=== PATIENT | male | born 1945 | race Caucasian/White ===

== ENCOUNTER 2020-08-14 14:35 | Observation (INO) | payer OTHER ==
[2020-08-14 16:19] LABS: Absolute Lymphocytes (CBC) 1.6 K/uL (0.7-4.9); Basophils % 0.4 % (0-1.3); Hematocrit 48.7 % (39.6-49.0); Lymphocytes % 8.1 % (15.3-44.8); MPV 8.2 fL (7.6-11.3); RBC Red Blood Cell Count 5.45 M/uL (4.33-5.43)
[2020-08-14] MEDS ORDERED: ONDANSETRON 4 MG/2 ML VIAL ONE (16:21)
[2020-08-14] MEDS ORDERED: NA CHLORIDE 0.9% 1,000 ML ONE (16:21)
[2020-08-14] MEDS ORDERED: MORPHINE 4 MG/ML SYR ONE (16:21)
[2020-08-14 16:31] LABS: Albumin 4.1 g/dL (3.4-5.0); Bilirubin Direct 0.2 mg/dL (0-0.2); Bilirubin Total 0.8 mg/dL (0.2-1.0); Potassium 3.7 mmol/L (3.5-5.1); Protein, Total 7.5 g/dL (6.4-8.2)
[2020-08-14 17:36] LABS: Blood Morphology Comment NOT SEEN (NOT SEEN); Platelet Estimate ADEQ
--- NOTE | 2020-08-14 17:43 | RAD REPORT ---
EXAM DESCRIPTION: CT - Abdomen Pelvis W Contrast - 08/14/2020 5:12 pm CLINICAL HISTORY: Abdominal distention;Abd pain COMPARISON: No comparisons TECHNIQUE: Biphasic, helical CT imaging of the abdomen and pelvis was performed following 100 ml non -ionic IV contrast. No oral contrast administered. All CT scans are performed using dose optimization technique as appropriate and may include automated exposure control or mA/KV adjustment according to patient size. FINDINGS: No suspicious findings in the lung bases. The liver, spleen, and pancreas show no suspicious findings. Liver shows a borderline to mild diffuse fatty infiltration pattern. No portal vein abnormality. No gallbladder or biliary tree abnormality. Symmetric renal function is seen with no hydronephrosis or suspicious renal mass. No pyelonephritis o r acute parenchymal process. No bladder abnormalities. No adrenal abnormalities. Enlarged prostate gl and projects into the bladder base. No gastric dilatation or gastric wall thickening. A few mildly prominent fluid-filled small bowel loo ps are present. This is nonspecific but could indicate enteritis. Patient has a right inguinal hernia that contains a loop of ileum. There is no dilatation proximal to the herniation and the herniated b owel loop show no thickening or edema. Appendix is not clearly identifiable. No direct or indirect ev idence for appendicitis. Moderate stool volume distends the sigmoid and dilates the rectum. No free air, free fluid or inflammatory stranding. No hernia, mass or bulky lymphadenopathy. Disc and bone degenerative changes present. No compression fracture or pathologic bone process. L5 pa rs interarticularis defects are present. Large 8 centimeter lipoma is seen in the lateral lower left chest. This is incompletely imaged. IMPRESSION: A few mildly prominent fluid-filled small bowel loops are present and could reflect a no nspecific enteritis. Moderate large stool volume distends the sigmoid colon and dilates the rectum. Right inguinal hernia containing a loop of ileum. No obstruction proximal to the herniated bowel loop no edema of the bowel wall or fat within the hernia.
[2020-08-14] MEDS ORDERED: HYDROMORPHONE HCL 1 MG/ML INJ ONE (18:27)
--- NOTE | 2020-08-14 18:31 | EDPHYS ---
Physician Documentation [facility] Name: Wellington De León Age: 75 yrs Sex: Male : 1945 Arrival Date: 08/14/2020 Time: 14:38 Bed 16 Private MD: ED Physician Simone Moore HPI: 08/14 15:50 This 75 yrs old Male presents to ER via Wheelchair with complaints of cp Abdominal Pain. 15:50 The patient presents with abdominal pain in the lower abdomen. Onset: The cp symptoms/episode began/occurred this morning. The symptoms do not radiate. Associated signs and symptoms: Pertinent positives: constipation, nausea, Pertinent negatives: blood in stools, diarrhea, dysuria, fever, testicular pain. The symptoms are described as constant. 15:50 Patient reports history of hernia and chronic constipation. Reports abdominal pain cp started this morning at work and that he has noticed leakage of stool from rectum. Historical: - Allergies: 15:17 No Known Allergies; ca1 - Home Meds: 15:17 None [Active]; ca1 - PMHx: 15:17 Hernia; ca1 - PSHx: 15:17 None; ca1 - Immunization history:: Client reports receiving the 1st dose of the Covid vaccine. - Social history:: Smoking status: Patient denies any tobacco usage or history of. ROS: 15:55 Constitutional: Negative for body aches, chills, fever, poor PO intake. cp 15:55 Eyes: Negative for injury, pain, redness, and discharge. cp 15:55 Cardiovascular: Negative for chest pain. 15:55 Respiratory: Negative for cough, shortness of breath. 15:55 Abdomen/GI: Positive for abdominal pain, nausea, constipation, abdominal distension, Negative for vomiting, black/tarry stool, rectal bleeding. 15:55 Back: Negative for pain at rest, pain with movement. 15:55 Neuro: Negative for altered mental status, headache, weakness. 15:55 All other systems are negative. Exam: 16:00 Constitutional: The patient appears in no acute distress, alert, awake, cp non-diaphoretic, non-toxic, well developed, well nourished. 16:00 Head/Face: Normocephalic, atraumatic. cp 16:00 Eyes: Periorbital structures: appear normal, Conjunctiva: normal, no exudate, no injection, Sclera: no appreciated abnormality, Lids and lashes: appear normal, bilaterally. 16:00 ENT: External ear(s): are unremarkable, Nose: is normal, Mouth: Lips: moist, Oral mucosa: pink and intact, moist, Posterior pharynx: Airway: no evidence of obstruction, patent. 16:00 Chest/axilla: Inspection: normal, Palpation: is normal, no crepitus, no tenderness. 16:00 Cardiovascular: Rate: normal, Rhythm: regular, Edema: is not appreciated. 16:00 Respiratory: the patient does not display signs of respiratory distress, Respirations: normal, no use of accessory muscles, no retractions, labored breathing, is not present, Breath sounds: are clear throughout, no decreased breath sounds, no wheezing. 16:00 Abdomen/GI: Inspection: distension, that is mild, Bowel sounds: active, all quadrants, Palpation: soft, in all quadrants, moderate abdominal tenderness, in the right lower quadrant and left lower quadrant, rebound tenderness, is not appreciated, voluntary guarding, is elicited in the right lower quadrant and left lower quadrant. 16:00 Back: pain, is absent, ROM is normal. Vital Signs: 15:11 BP 145 / 85; Pulse 96; Resp 16 S; Temp 97.1(TE); Pulse Ox 100% on R/A; Weight 77.11 kg ca1 (R); Height 5 ft. 9 in. (175.26 cm) (R); Pain 9/10; 17:30 BP 149 / 80; Pulse 80; Resp 16; Pulse Ox 100% on R/A; bw 18:42 BP 134 / 82; Pulse 78; Resp 16; Pulse Ox 98% on R/A; iw 20:00 BP 102 / 64; Pulse 78; Resp 16; Pulse Ox 96% ; sf 21:00 BP 106 / 65; Pulse 73; Resp 16; Pulse Ox 95% ; sf 22:00 BP 116 / 71; Pulse 75; Resp 16; Pulse Ox 96% ; sf 15:11 Body Mass Index 25.10 (77.11 kg, 175.26 cm) ca1 MDM: 15:33 Patient medically screened. cp 16:00 Differential diagnosis: bowel obstruction, diverticulitis, pancreatitis, urinary tract cp infection. 18:21 Physician consultation: Hill Medina MD was called at 18:22, was contacted at 18:22, cp regarding consult, patient's condition, will see patient tomorrow for evaluation. Wants IV antibiotics administered. 18:24 Data reviewed: vital signs, nurses notes, lab test result(s), radiologic studies, CT cp scan, I have discussed the patient's presentation/case with the attending Emergency Department Physician;. 08/14 15:39 Order name: Basic Metabolic Panel; Complete Time: 16:33 cp 08/14 16:33 Interpretation: Normal except: CL 108; GLUC 108; GFR 75. 08/14 15:39 Order name: CBC with Diff; Complete Time: 17:38 cp 08/14 17:56 Interpretation: Normal except: WBC 20.20; RBC 5.45; ART% 85.7; LYM% 8.1; NEUT A 17.3. 08/14 15:39 Order name: Hepatic Function; Complete Time: 16:33 cp 08/14 17:39 Interpretation: Reviewed. 08/14 15:39 Order name: Lipase; Complete Time: 16:33 08/14 17:36 Order name: Manual Differential; Complete Time: 17:38 EDAK 08/14 15:39 Order name: CT Abd/Pelvis - IV Contrast Only; Complete Time: 17:52 cp 08/14 19:40 Order name: Abdomen W Erect [facility] 08/14 19:40 Order name: Abdomen W Erect [facility] 08/14 20:31 Order name: SARS-COV-2 RT PCR EDAK 08/14 15:39 Order name: IV Saline Lock; Complete Time: 16:03 cp 08/14 15:39 Order name: Labs collected and sent; Complete Time: 16:04 cp Administered Medications: 16:17 Drug: morphine 4 mg Route: IVP; Site: right antecubital; iw 17:00 Follow up: Response: No adverse reaction; Pain is decreased; RASS: Alert and Calm (0) ca1 16:20 Drug: Zofran (Ondansetron) 4 mg Route: IVP; Site: left antecubital; iw 18:15 Follow up: Response: No adverse reaction; Nausea is decreased ca1 16:21 Drug: NS 0.9% 500 ml Route: IV; Rate: bolus; Site: left antecubital; iw 17:00 Follow up: Response: No adverse reaction; IV Status: Completed infusion; IV Intake: ca1 500ml 18:10 Drug: Dilaudid (HYDROmorphone) 1 mg Route: IVP; Site: left antecubital; ca1 19:42 Follow up: Response: No adverse reaction sf 18:42 Drug: metroNIDAZOLE 500 mg Volume: 100 ml; Route: IVPB; Infused Over: 30 mins; Site: iw left antecubital; 19:42 Follow up: Response: No adverse reaction; IV Status: Completed infusion; IV Intake: sf 100ml 20:00 Drug: Cipro (ciprofloxacin) 400 mg Volume: 200 ml; Route: IVPB; Infused Over: 60 mins; sf Site: left antecubital; 21:00 Follow up: IV Status: Completed infusion; IV Intake: 200ml sf 21:00 Follow up: Response: No adverse reaction sf Disposition: 08/14/20 18:31 Hospitalization ordered by Clayton Horton for Observation. Preliminary diagnosis is Unilateral inguinal hernia, without obstruction or gangrene - right. - Bed requested for Telemetry/MedSurg (observation). - Status is Observation. sf - Condition is Stable. - Problem is new. - Symptoms have improved. Addendum: 08/19/2020 10:10 Co-signature as Attending Physician, Simone Moore MD I agree with the assessment and t w4 plan of care. Signatures: Dispatcher [employer] EDAK Nahed Cast RN RN Rubén Cordova PA PA cp Garcia, Cindy, RN RN Simone Moore MD MD tw4 Mindy Paulson RN RN [facility] Nahun Morales RN RN sf Corrections: (The following items were deleted from the chart) 08/14 17:56 16:33 Normal except: WBC 20.20; RBC 5.45; ART% 85.7; LYM% 8.1. cp cp 19:43 18:30 CORONAVIRUS+MR.LAB.BRZ ordered. EDAK EDMS 21:29 18:31 Hospitalization Ordered by Clayton Horton MD for Observation. Preliminary cg diagnosis is Unilateral inguinal hernia, without obstruction or gangrene - right. Bed requested for Telemetry/MedSurg (observation). Status is Observation. Condition is Stable. Problem is new. Symptoms have improved. cp 22:26 21:29 08/14/2020 18:31 Hospitalization Ordered by Clayton Horton MD for Observation. sf Preliminary diagnosis is Unilateral inguinal hernia, without obstruction or gangrene - right. Bed requested for Telemetry/MedSurg (observation). Status is Observation. Condition is Stable. Problem is new. Symptoms have improved. cg
--- NOTE | 2020-08-14 18:31 | ER ---
Nurse's Notes [facility] Name: Wellington De León Age: 75 yrs Sex: Male : 1945 Arrival Date: 08/14/2020 Time: 14:38 Bed 16 Private MD: Diagnosis: Unilateral inguinal hernia, without obstruction or gangrene-right Presentation: 08/14 15:11 Chief complaint: Patient states: I got a hernia, and at around 0800 I started having ca1 abdominal pain. I thought I just needed to go to the restroom, but I can't. But I also got leaking, through the rectum like a diarrhea. I have had constipation for years. Reports nausea, no vomiting. Coronavirus screen: Client denies travel out of the [place] in the last 14 days. nausea, Client presents with at least one sign or symptom that may indicate coronavirus-19. Standard/surgical mask placed on the client. Provider contacted for isolation considerations. Ebola Screen: Patient negative for fever greater than or equal to 101.5 degrees Fahrenheit, and additional compatible Ebola Virus Disease symptoms Patient denies exposure to infectious person. Patient denies travel to an Ebola-affected area in the 21 days before illness onset. No symptoms or risks identified at this time. Initial Sepsis Screen: Does the patient meet any 2 criteria? No. Patient's initial sepsis screen is negative. Does the patient have a suspected source of infection? No. Patient's initial sepsis screen is negative. Risk Assessment: Do you want to hurt yourself or someone else? Patient reports no desire to harm self or others. Onset of symptoms was August 14, 2020. 15:11 Method Of Arrival: Wheelchair ca1 15:11 Acuity: RASHEEDA 3 ca1 Triage Assessment: 15:26 General: Appears. iw Historical: - Allergies: 15:17 No Known Allergies; ca1 - Home Meds: 15:17 None [Active]; ca1 - PMHx: 15:17 Hernia; ca1 - PSHx: 15:17 None; ca1 - Immunization history:: Client reports receiving the 1st dose of the Covid vaccine. - Social history:: Smoking status: Patient denies any tobacco usage or history of. Screenin:30 Abuse screen: Denies threats or abuse. Nutritional screening: No deficits noted. bw Tuberculosis screening: No symptoms or risk factors identified. Fall Risk None identified. Assessment: 17:30 Reassessment: Patient appears in no apparent distress at this time. Patient and/or bw family updated on plan of care and expected duration. Pain level reassessed. Patient is alert, oriented x 3, equal unlabored respirations, skin warm/dry/pink. Pain: Complains of pain in abdomen. Neuro: No deficits noted. Cardiovascular: No deficits noted. Respiratory: No deficits noted. GI: Bowel sounds present X 4 quads. Abd is soft Abdomen is tender to palpation. : No signs and/or symptoms were reported regarding the genitourinary system. 18:42 Reassessment: Patient appears in no apparent distress at this time. Patient and/or iw family updated on plan of care and expected duration. Pain level reassessed. Patient is alert, oriented x 3, equal unlabored respirations, skin warm/dry/pink. 20:01 Reassessment: Patient appears in no apparent distress at this time. Patient and/or sf family updated on plan of care and expected duration. Pain level reassessed. Patient is alert, oriented x 3, equal unlabored respirations, skin warm/dry/pink. Vital Signs: 15:11 BP 145 / 85; Pulse 96; Resp 16 S; Temp 97.1(TE); Pulse Ox 100% on R/A; Weight 77.11 kg ca1 (R); Height 5 ft. 9 in. (175.26 cm) (R); Pain 9/10; 17:30 BP 149 / 80; Pulse 80; Resp 16; Pulse Ox 100% on R/A; bw 18:42 BP 134 / 82; Pulse 78; Resp 16; Pulse Ox 98% on R/A; iw 20:00 BP 102 / 64; Pulse 78; Resp 16; Pulse Ox 96% ; sf 21:00 BP 106 / 65; Pulse 73; Resp 16; Pulse Ox 95% ; sf 22:00 BP 116 / 71; Pulse 75; Resp 16; Pulse Ox 96% ; sf 15:11 Body Mass Index 25.10 (77.11 kg, 175.26 cm) ca1 ED Course: 14:38 Patient arrived in ED. am2 15:14 Triage completed. ca1 15:17 Arm band placed on right wrist. ca1 15:26 Nahed Cast, RN is Primary Nurse. iw 15:26 Rubén Cordova PA is PHCP. cp 15:26 Simone Moore MD is Attending Physician. cp 16:03 Inserted saline lock: 20 gauge in left antecubital area, using aseptic technique. Blood dh4 collected. 17:18 CT Abd/Pelvis - IV Contrast Only In Process Unspecified. EDMS 17:30 Patient has correct armband on for positive identification. Bed in low position. Call bw light in reach. Side rails up X 1. Pulse ox on. NIBP on. 18:30 Clayton Horton MD is Hospitalizing Provider. cp 19:15 COVID swab sent to lab. sf 20:06 Primary Nurse role handed off by Nahed Cast, RN tt3 21:13 Nahun Morales, FER is Primary Nurse. sf 22:07 No provider procedures requiring assistance completed. Patient admitted, IV remains in sf place. Administered Medications: 16:17 Drug: morphine 4 mg Route: IVP; Site: right antecubital; iw 17:00 Follow up: Response: No adverse reaction; Pain is decreased; RASS: Alert and Calm (0) ca1 16:20 Drug: Zofran (Ondansetron) 4 mg Route: IVP; Site: left antecubital; iw 18:15 Follow up: Response: No adverse reaction; Nausea is decreased ca1 16:21 Drug: NS 0.9% 500 ml Route: IV; Rate: bolus; Site: left antecubital; iw 17:00 Follow up: Response: No adverse reaction; IV Status: Completed infusion; IV Intake: ca1 500ml 18:10 Drug: Dilaudid (HYDROmorphone) 1 mg Route: IVP; Site: left antecubital; ca1 19:42 Follow up: Response: No adverse reaction sf 18:42 Drug: metroNIDAZOLE 500 mg Volume: 100 ml; Route: IVPB; Infused Over: 30 mins; Site: iw left antecubital; 19:42 Follow up: Response: No adverse reaction; IV Status: Completed infusion; IV Intake: sf 100ml 20:00 Drug: Cipro (ciprofloxacin) 400 mg Volume: 200 ml; Route: IVPB; Infused Over: 60 mins; sf Site: left antecubital; 21:00 Follow up: IV Status: Completed infusion; IV Intake: 200ml sf 21:00 Follow up: Response: No adverse reaction sf Intake: 17:00 IV: 500ml; Total: 500ml. ca1 19:42 IV: 100ml; Total: 600ml. sf 21:00 IV: 200ml; Total: 800ml. sf Outcome: 18:31 Decision to Hospitalize by Provider. cp 22:07 Admitted to Tele accompanied by nurse, via wheelchair, room 216, Report called to kaylah Grijalva RN 22:07 Condition: stable 22:07 Instructed on the need for admit. 22:26 Patient left the ED. sf Signatures: Dispatcher [employer] EDNahed Eisenberg RN RN iw Page, Corey, PA PA cp Kelsea Dupont am2 Mindy Paulson RN RN [facility] Fredy Wood 4 Graham Pederson 3 Nahun Morales RN RN sf Webb, Bethany, RN RN bw Corrections: (The following items were deleted from the chart) 22:21 22:07 Admitted to Tele accompanied by tech, via wheelchair, room 216, Report called to kaylah Grijalva RN
[2020-08-14] MEDS ORDERED: METRONIDAZOLE 500mg IVPB 500 MG/100 ML BAG IV ONE (18:51)
[2020-08-14] MEDS ORDERED: CIPROFLOXACIN 400mg IV 400 MG/200 ML BAG IV ONE (18:51)
--- NOTE | 2020-08-14 19:40 | P.HP ---
Certification for Inpatient Patient admitted to: Inpatient With expected LOS: >2 Midnights Patient will require the following post-hospital care: None Practitioner: I am a practitioner with admitting privileges, knowledge of patient current condition, hospital course, and medical plan of care. Services: Services provided to patient in accordance with Admission requirements found in Title 42 Section 412.3 of the Code of Federal Regulations <Renard Rodriguez - Last Filed: 08/14/20 19:36> Patient History Date of Service: 08/14/20 Reason for admission: Enteritis, inguinal hernia, leukocytosis History of Present Illness: 75-year-old male with no significant past medical history presents emergency department for lower abdominal pain. Patient reports history of right inguinal hernia for the course the last 2 years which is usually easily reducible. Patient reports increased pain and an ability to determine if hernia is reduced or not, patient presented to the emergency department for evaluation. Labs reveal elevated white blood cell count 20.2 with left shift hemoglobin 16.6 hematocrit 48.7 chloride 108 's GFR 75. CT demonstrates a few mildly prominent fluid-filled small-bowel loops present that could reflect a nonspecific enteritis, moderate large stool volume distending the sigmoid colon and dilated rectum, right inguinal hernia containing a loop of the ileum without obstruction proximal to the herniated bowel loops and no edema of the bowel wall or fat within the hernia. Patient also noted to have a large 8 cm lipoma in the lateral lower left chest. Patient with a significant amount of abdominal pain requiring opioids for control, case was discussed with General Surgery by ED provider who recommends admission, NPO, IVF, IV ABX and pain control overnight, will evaluate in the morning. - Past Medical/Surgical History -: none -: none Psychosocial/ Personal History: Patient works in a warehouse, lives with family - Family History Father -: Cancer Mother -: Heart disease Brother -: Lung disease - Social History Smoking Status: Never smoker Alcohol use: No CD- Drugs: No Caffeine use: Yes Place of Residence: Home <Renard Rodriguez - Last Filed: 08/14/20 19:36> Date of Service: 08/15/20 <Clayton Horton - Last Filed: 08/15/20 21:55> Review of Systems 10-point ROS is otherwise unremarkable Gastrointestinal: Nausea, Abdominal Pain, Constipation <Renard Rodriguez - Last Filed: 08/14/20 19:36> Physical Examination - Physical Exam General: Alert, In no apparent distress HEENT: Atraumatic, PERRLA, Mucous membr. moist/pink Neck: Supple, 2+ carotid pulse no bruit, No LAD Respiratory: Clear to auscultation bilaterally, Normal air movement Cardiovascular: Regular rate/rhythm, Normal S1 S2 Gastrointestinal: Normal bowel sounds, No rebound, No guarding, Tenderness (Mild to moderate lower abdominal tenderness on exam) Musculoskeletal: No tenderness Integumentary: No rashes Neurological: Normal speech, Normal strength at 5/5 x4 extr, Normal tone, Normal affect - Studies Laboratory Data (last 24 hrs) 08/14/20 16:00: WBC 20.20 H*, Hgb 16.6, Hct 48.7, Plt Count 382 08/14/20 16:00: Sodium 143, Potassium 3.7, BUN 15, Creatinine 0.98, Glucose 108 H, Total Bilirubin 0.8, AST 12 L, ALT 25, Alkaline Phosphatase 68, Lipase 125 <Renard Rodriguez - Last Filed: 08/14/20 19:36> Assessment and Plan - Plan Assessment Abdominal pain, leukocytosis secondary to nonspecific enteritis complicated with presence of inguinal hernia Plan Abdominal pain, leukocytosis secondary to nonspecific enteritis complicated with presence of inguinal hernia: NPO, IV fluids, Cipro/Flagyl, p.r.n. pain meds and anti emetics. Consult general surgery for evaluation of present in the hernia and leukocytosis. Will obtain abdominal x-ray in the morning for further evaluation. SCDs for DVT prophylaxis at this time. Discharge Plan: Home Plan to discharge in: 48 Hours - Advance Directives Does patient have a Living Will: No Does patient have a Durable POA for Healthcare: No - Code Status/Comfort Care Code Status Assessed: Yes (Full code) Critical Care: No Time Spent Managing Pts Care (In Minutes): 55 <Renard Rodriguez - Last Filed: 08/14/20 19:36> - Plan Abd pain w/ leukocytosis 2/2 enteritis, also with pain due to inguinal hernia NPO, IVF, Cipro & flagyl General surgery consulted <Clayton Horton - Last Filed: 08/15/20 21:55>
[2020-08-14 21:38] VITALS: BMI 25.8
[2020-08-14] MEDS: CIPROFLOXACIN 400mg IV 400 MG/200 ML BAG IV SCH (22:38)
[2020-08-14] MEDS ORDERED: HYDROMORPHONE HCL 1 MG/ML INJ IV PRN (22:38)
[2020-08-14] MEDS ORDERED: ONDANSETRON 4 MG/2 ML VIAL IV PRN (22:38)
[2020-08-14] MEDS: NA CHLORIDE 0.9% 1,000 ML IV SCH (23:04)
[2020-08-15] MEDS: METRONIDAZOLE 500mg IVPB 500 MG/100 ML BAG IV SCH ×3 (01:46→17:24)
[2020-08-15 03:56] LABS: Urine Appearance CLEAR (Clear); Urine Bilirubin NEGATIVE (Negative); Urine Blood NEGATIVE (Negative); Urine Color YELLOW (Yellow); Urine Glucose NEGATIVE (Negative); Urine Protein NEGATIVE (Negative); Urine Specific Gravity >=1.030 (1.005-1.030)
[2020-08-15 03:57] LABS: Urine Microscopic Reflex NO UMIC
[2020-08-15 06:22] LABS: Absolute Lymphocytes (CBC) 1.5 K/uL (0.7-4.9); Basophils % 0.1 % (0-1.3); Hematocrit 42.4 % (39.6-49.0); Lymphocytes % 12.8 % (15.3-44.8); MPV 8.1 fL (7.6-11.3)
[2020-08-15 06:25] LABS: ALT/SGPT 20 U/L (12-78); AST/SGOT 11 U/L (15-37); Albumin 3.3 g/dL (3.4-5.0); Alkaline Phosphatase 56 U/L (45-117); BUN Blood Urea Nitrogen 15 mg/dL (7-18); Bicarbonate 26 mmol/L (21-32); Bilirubin Total 0.9 mg/dL (0.2-1.0); Glucose Level 109 mg/dL (74-106); Magnesium 2.3 mg/dL (1.8-2.4); Potassium 3.6 mmol/L (3.5-5.1); Protein, Total 6.2 g/dL (6.4-8.2); Sodium Level 142 mmol/L (136-145)
[2020-08-15] MEDS: CIPROFLOXACIN 400mg IV 400 MG/200 ML BAG IV SCH ×2 (08:56→20:11)
[2020-08-15] MEDS ORDERED: KCL 20 MEQ/100 mL IVPB 20 MEQ/100 ML BAG IV ONE (09:00)
--- NOTE | 2020-08-15 09:13 | RAD REPORT ---
EXAM DESCRIPTION: RAD - Abdomen W Erect - 08/15/2020 8:13 am CLINICAL HISTORY: Eval for SBO COMPARISON: Abdomen Pelvis W Contrast dated 08/14/2020 TECHNIQUE: Supine and upright views of the abdomen were obtained. FINDINGS: Air in stool present filling but not dilating the colon. A few nondilated air-filled small bowel loops are present. No progression cord small-bowel obstruction identifiable. There is no free air or pneumatosis seen. No suspicious calcifications. IMPRESSION: Nonspecific bowel gas pattern. No finding to suspect progression towards small bowel obs truction.
[2020-08-15] MEDS: NA CHLORIDE 0.9% 1,000 ML IV SCH ×2 (12:44→20:17)
[2020-08-15] MEDS ORDERED: POTASSIUM CL SA 10 MEQ TAB PO ONE (13:00)
--- NOTE | 2020-08-15 14:04 | P.PN ---
Subjective Date of Service: 08/15/20 Chief Complaint: Enteritis, inguinal hernia, leukocytosis Subjective: Improving (reports improvement in pain, but still having discomfort. doesn't "feel hernia" at this time. denies nausea/vomiting, had several bouts of diarrhea this morning, no nauesea/vomiting. seen by surgery and recommended advancement to liquid diet and continue monitoring) Review of Systems 10-point ROS is otherwise unremarkable Physical Examination - Vital Signs Temperature: 99.5 F Blood Pressure: 143/70 Pulse: 74 Respirations: 18 Pulse Ox (%): 94 - Studies Laboratory Data (last 24 hrs) 08/14/20 16:00: WBC 20.20 H*, Hgb 16.6, Hct 48.7, Plt Count 382 08/14/20 16:00: Sodium 143, Potassium 3.7, BUN 15, Creatinine 0.98, Glucose 108 H, Total Bilirubin 0.8, AST 12 L, ALT 25, Alkaline Phosphatase 68, Lipase 125 Assessment & Plan Physician Review Additional Text: Physical Exam General: alert, NAD HEENT: sclera anicteric, normal conjunctiva Respiratory: Clear to auscultation bilaterally, Normal air movement Cardiovascular: Regular rate/rhythm, Normal S1 S2 Gastrointestinal: soft, mild lower abdominal tenderness to palpation on exam Musculoskeletal: No tenderness, no rash, no edema Neurological: Normal speech, Normal strength at 5/5 x4 extr Problem List Abdominal pain, leukocytosis secondary to nonspecific enteritis complicated with presence of inguinal hernia -seems to be improving, but not resolved -discussed with general surgery this morning, advance to liquid diet, cut back on IVF if tolerating diet better -PRN pain meds, anti-emetics -continue cipiro & flagyl -leukocytosis improving -abd x-ray this morning without evidence of Sbo Dispo: anticipate dc home in the next 24hrs Time Spent Managing Pts Care (In Minutes): 35
--- NOTE | 2020-08-15 14:45 | CON ---
Date of Consultation: 08/15/2020 Diagnosis: Abdominal pain. History Of Present Illness: This is the case of a 75-year-old patient. The last 3 days he has been eating a lot of spicy food, developed abdominal pain with nausea and diarrhea. He is normally consti pated. He does not remember exactly what he ate and only he has been eating outside in the last 3 da ys with a lot of spicy food, develop this abdominal pain. During the workup, the patient found to cordero ve a right inguinal hernia, although he claims that hernia has been there for years and has not given any trouble and the pain is not specifically in that area, but surgical consult was obtained just to evaluate that situation. He denies any dysuria, hematuria, hematochezia, melena. He denies any rec ent traveling out of the country. Denies any family member sick at home. He has no previous colonos copy, although he was advised the importance of that for cancer. Past Medical History: None. Family History: Include father with cancer and heart disease. Brother with lung disease. Social History: He never smoked. He does not drink alcohol. Allergies: NONE. Review of Systems: At one moment he had nausea, but now is mainly diarrhea. His pain is better. He is passing flatus a nd having bowel movement, although he is a normally constipated. Ten points otherwise unremarkable. Physical Examination: General: The patient is awake and alert. HEENT: Pupils are equal and reactive, anicteric. Neck: Supple. Chest: Clear. Abdomen: Soft and depressible. No guarding or rebound. No peritoneal signs. Yesterday he said he has distended abdomen, right now he is not. The patient has a small inguinal hernia. No pain and no tenderness in that region. Rectal: Deferred. Extremities: Good capillary refill. Laboratory Data: Blood work . Sodium is 143, chloride is 108. CAT scan of abdomen and pe lvis once again reviewed with the patient shows evidence of enteritis. The hernia, although present, does not seen to have any obstruction there and any swelling as per radiologist. Assessment: This is a 75-year-old patient with enteritis. The patient has a hernia there for a long time. At this moment, it seems not to be the source of the problem, although he was advised the imp ortance of having that repair. If he eventually get discharged home and his enteritis resolve, elect ively it is important to have that done. Since any inflammation of the bowel will also of the hernia and may cause trouble including bowel damage. The patient was advised the importance als o of diet control until this is resolved. It is important also he has his colonoscopy done, he never had before and his constipation workup should be done. At this moment, he wants elective surgery if possible. So, he has a benign abdomen. The hernia does not since strangulated or any pain at this moment. It is reducible. So, we will go to try liquid diet and if he gets sick, then will have to r e-evaluate surgical intervention again. DALIA/BERKLEY Voice ID: [id number] Report ID: [id number]
[2020-08-16] MEDS: METRONIDAZOLE 500mg IVPB 500 MG/100 ML BAG IV SCH ×2 (00:33→09:00)
[2020-08-16] MEDS: NA CHLORIDE 0.9% 1,000 ML IV SCH (04:17)
[2020-08-16 06:36] LABS: Absolute Lymphocytes (CBC) 1.4 K/uL (0.7-4.9); Basophils % 0.4 % (0-1.3); Hematocrit 41.4 % (39.6-49.0); Lymphocytes % 15.8 % (15.3-44.8); MPV 7.5 fL (7.6-11.3); RBC Red Blood Cell Count 4.62 M/uL (4.33-5.43)
[2020-08-16 06:52] LABS: ALT/SGPT 18 U/L (12-78); AST/SGOT 14 U/L (15-37); Albumin 3.4 g/dL (3.4-5.0); Alkaline Phosphatase 55 U/L (45-117); BUN Blood Urea Nitrogen 9 mg/dL (7-18); Bicarbonate 27 mmol/L (21-32); Bilirubin Total 0.7 mg/dL (0.2-1.0); Glucose Level 106 mg/dL (74-106); Magnesium 2.5 mg/dL (1.8-2.4); Potassium 3.9 mmol/L (3.5-5.1); Protein, Total 6.4 g/dL (6.4-8.2); Sodium Level 143 mmol/L (136-145)
[2020-08-16] MEDS ORDERED: POTASSIUM 25 MEQ EFFERV TAB PO ONE (08:00)
[2020-08-16] MEDS: CIPROFLOXACIN 400mg IV 400 MG/200 ML BAG IV SCH (09:00)
--- NOTE | 2020-08-16 09:21 | P.DS ---
Admission Date: 08/14/20 Discharge Date: 08/16/20 Disposition: ROUTINE DISCHARGE Discharge Condition: GOOD Reason for Admission: Enteritis, inguinal hernia, leukocytosis Consultations: General surgeryDr. Adam Procedures: CT Abd/Pelvis (08/14): FINDINGS: No suspicious findings in the lung bases. The liver, spleen, and pancreas show no suspicious findings. Liver shows a borderline to mild diffuse fatty infiltration pattern. No portal vein abnormality. No gallbladder or biliary tree abnormality. Symmetric renal function is seen with no hydronephrosis or suspicious renal mass. No pyelonephritis or acute parenchymal process. No bladder abnormalities. No adrenal abnormalities. Enlarged prostate gland projects into the bladder base. No gastric dilatation or gastric wall thickening. A few mildly prominent fluid- filled small bowel loops are present. This is nonspecific but could indicate enteritis. Patient has a right inguinal hernia that contains a loop of ileum. There is no dilatation proximal to the herniation and the herniated bowel loop show no thickening or edema. Appendix is not clearly identifiable. No direct or indirect evidence for appendicitis. Moderate stool volume distends the sigmoid and dilates the rectum. No free air, free fluid or inflammatory stranding. No hernia, mass or bulky lymphadenopathy. Disc and bone degenerative changes present. No compression fracture or patho logic bone process. L5 pars interarticularis defects are present. Large 8 centimeter lipoma is seen in the lateral lower left chest. This is incompletely imaged. IMPRESSION: A few mildly prominent fluid-filled small bowel loops are present and could reflect a nonspecific enteritis. Moderate large stool volume distends the sigmoid colon and dilates the rectum. Right inguinal hernia containing a loop of ileum. No obstruction proximal to the herniated bowel loop no edema of the bowel wall or fat within the hernia. Xray Abd (08/15): FINDINGS: Air in stool present filling but not dilating the colon. A few nondilated air-filled small bowel loops are present. No progression cord small- bowel obstruction identifiable. There is no free air or pneumatosis seen. No suspicious calcifications. IMPRESSION: Nonspecific bowel gas pattern. No finding to suspect progression towards small bowel obstruction. Problem List Enteritis Right inguinal hernia Constipation Brief History of Present Illness: 75yo M, no significant past medical history presented to ED due to lower abdominal pain. Reports h/o R inguinal hernia over the last 2 years which is usually reducible. Patient reports increased pain and an ability to determine if hernia is reduced or not, patient presented to the emergency department for evaluation. Labs: leukoycotisos of 20.[address] demonstrates a few mildly prominent fluid-filled small-bowel loops present that could reflect a nonspecific enteritis, moderate large stool volume distending the sigmoid colon and dilated rectum, right inguinal hernia containing a loop of the ileum without obstruction proximal to the herniated bowel loops and no edema of the bowel wall or fat within the hernia. Patient also noted to have a large 8 cm lipoma in the lateral lower left chest. Patient with a significant amount of abdominal pain requiring opioids for control, case was discussed with General Surgery by ED provider who recommends admission Hospital Course: Patient slowly improved, had a large bowel movement, and his diet was slowly advanced. General surgery was consulted and recommended elective repair of hernia since it was not currently incarcerated. Patient tolerate full liquid diet without any worsening of pain. On day of discharge, was feeling like his typical self, pain-free, and passing flatus. He was anxious to be discharged home, reported some anxiety being in the hospital. He was discharged home with prescription for ciprofloxacin and Flagyl. He is to follow-up with his PCP in 3 to 5 days. He is to follow-up with Dr. Medina Vital Signs/Physical Exam: Physical Exam General: alert, NAD HEENT: sclera anicteric, normal conjunctiva Respiratory: Clear to auscultation bilaterally, Normal air movement Cardiovascular: Regular rate/rhythm, Normal S1 S2 Gastrointestinal: soft, nontender, nondistended Musculoskeletal: No tenderness, no rash, no edema Neurological: Normal speech, Normal strength at 5/5 x4 extr Temp Pulse Resp BP Pulse Ox 98.5 F 82 18 161/75 H 96 08/16/20 04:00 08/16/20 04:00 08/16/20 04:00 08/16/20 04:00 08/16/20 04:00 Laboratory Data at Discharge: WBC 8.80 K/uL (4.3-10.9) D 08/16/20 06:16 Hgb 14.3 g/dL (13.6-17.9) 08/16/20 06:16 Hct 41.4 % (39.6-49.0) 08/16/20 06:16 Plt Count 296 K/uL (152-406) 08/16/20 06:16 Sodium 143 mmol/L (136-145) 08/16/20 06:16 Potassium 3.9 mmol/L (3.5-5.1) 08/16/20 06:16 BUN 9 mg/dL (7-18) 08/16/20 06:16 Creatinine 0.79 mg/dL (0.55-1.3) 08/16/20 06:16 Glucose 106 mg/dL (74-106) 08/16/20 06:16 Magnesium 2.5 mg/dL (1.8-2.4) H 08/16/20 06:16 Total Bilirubin 0.7 mg/dL (0.2-1.0) 08/16/20 06:16 AST 14 U/L (15-37) L 08/16/20 06:16 ALT 18 U/L (12-78) 08/16/20 06:16 Alkaline Phosphatase 55 U/L (45-117) 08/16/20 06:16 Lipase 125 U/L (73-393) 08/14/20 16:00 Home Medications: RX: Ciprofloxacin HCl 500 mg PO BID 10 Days #20 tablet 08/16/20 metroNIDAZOLE [Flagyl] 500 mg PO Q8H 10 Days #30 tablet 08/16/20 New Medications: RX: Ciprofloxacin HCl 500 mg PO BID 10 Days #20 tablet metroNIDAZOLE [Flagyl] 500 mg PO Q8H 10 Days #30 tablet Physician Discharge Instructions: PROBLEM: Enteritis, Constipation, Inguinal Hernia GOAL: Clear understanding of disease process E-scripts sent to [facility] in [place]. INSTRUCTIONS: - You were found to have enteritis - inflammation of your intestine and some constipation. You improved with antibiotics. - General Surgery, Dr. Medina, evaluated you and recommended elective repair of your hernia in the near future after this infection resolves. - You are discharged with 10 days of antibiotics. - Follow up with your Primary Care Provider in the next 3-5 days. It is recommended that you have a colonoscopy. - Follow up with Dr. Medina in 1-2 weeks. - Return to the ER if your symptoms worsen. - Call the 2nd floor at if you have any questions regarding your nursing care. Diet: Soft diet Activity: As tolerated IMMUNIZATION Influenza Vaccine Indicated: Influenza Vaccine Given: Date Given: Pneumonia Vaccine Indicated: No Pneumonia Vaccine Given: Date Given: Diet: soft diet Activity: Ad arvin Followup: Hill Medina MD [ACTIVE - CAN ADMIT] - 1-2 Weeks (Follow up in office in 1-2 weeks. Call to schedule an appointment.) Time spent managing pt's care (in minutes): 35
[2020-08-16 10:57] VITALS: BP 178/79; TEMP 98.6; O2SAT 97
== END 2020-08-16 10:33 | disposition home or self-care (01) ==
LOC: ER 14:35 → INTOOBSV 19:22 → ERHOLD 19:22 → 2ND 22:11
PROVIDERS: ADMIT Hospitalist; ATTEND Hospitalist
DX: K52.9 Noninfective gastroenteritis and colitis, unspecified (principal); K40.90 Unilateral inguinal hernia, without obstruction or gangrene, not specified as recurrent; D72.829 Elevated white blood cell count, unspecified; Z20.822 Contact with and (suspected) exposure to COVID-19
CPT/HCPCS: 87040 ×2; 85025 ×3; 80048; 36415 ×2; 83735 ×2; 80076; 81003; 83690; 80053 ×2; 84145 ×2; 74177; 74019; 99285; U0003; Q9967; J3480; J1170; J7030 ×4; J2405; J0744 ×3; G0378 ×4

== ENCOUNTER 2022-01-16 23:45 | Emergency (ER) | payer OTHER ==
[2022-01-17] MEDS ORDERED: METOPROLOL TAR 50 MG TAB ONE (01:09)
[2022-01-17 01:31] LABS: Absolute Lymphocytes (CBC) 1.5 K/uL (0.7-4.9); Hematocrit 45.8 % (39.6-49.0); MCV 89.7 fL (80-100); MPV 7.5 fL (7.6-11.3)
[2022-01-17 01:32] LABS: Protime INR 0.99
[2022-01-17] MEDS ORDERED: LORazepam 2 MG/ML VIAL ONE (01:34)
[2022-01-17 01:45] LABS: Albumin 4.1 g/dL (3.4-5.0); Bilirubin Direct 0.1 mg/dL (0-0.2); Bilirubin Total 0.4 mg/dL (0.2-1.0); Magnesium 2.2 mg/dL (1.8-2.4); Potassium 3.4 mmol/L (3.5-5.1); Protein, Total 7.4 g/dL (6.4-8.2); Troponin High Sensitivity 21.4 pg/mL (<58.9)
[2022-01-17 01:53] LABS: Urine Blood Negative (Negative); Urine Glucose Negative (Negative); Urine Protein Negative (Negative); Urine Specific Gravity <=1.005 (1.005-1.030); Urine pH 5.5 (5.0-7.0)
[2022-01-17] MEDS ORDERED: ASPIRIN EC 81 MG TAB PO ONE (02:12)
[2022-01-17] MEDS ORDERED: POTASSIUM 25 MEQ EFFERV TAB ONE (02:12)
--- NOTE | 2022-01-17 02:37 | EDPHYS ---
Physician Documentation [facility] Name: Wellington De León Age: 76 yrs Sex: Male : 1945 Arrival Date: 01/16/2022 Time: 23:47 Bed 8 Private MD: ED Physician Rubén Higginbotham HPI: 01/17 01:39 This 76 yrs old Male presents to ER via Ambulatory with complaints of bert Anxiety, High Blood Pressure. 01:39 The patient has elevated blood pressure and discovered this at home. Onset: The bert symptoms/episode began/occurred just prior to arrival, yesterday. Modifying factors: The symptoms are aggravated by activity, The symptoms are alleviated by remaining still. Associated signs and symptoms: The patient has no apparent associated signs or symptoms. Severity of symptoms: At its worst the blood pressure was moderate, in the emergency department the blood pressure is unchanged. The patient has experienced similar episodes in the past, several times. Historical: - Allergies: 00:04 No Known Allergies; hb - PMHx: 00:04 Hernia; hb - Immunization history:: Adult Immunizations up to date. - Social history:: Smoking status: Patient denies any tobacco usage or history of. ROS: 01:40 Constitutional: Negative for fever, chills, and weight loss, Eyes: Negative for injury, bert pain, redness, and discharge, ENT: Negative for injury, pain, and discharge, Neck: Negative for injury, pain, and swelling, Cardiovascular: Negative for chest pain, palpitations, and edema, Respiratory: Negative for shortness of breath, cough, wheezing, and pleuritic chest pain, Abdomen/GI: Negative for abdominal pain, nausea, vomiting, diarrhea, and constipation, Back: Negative for injury and pain, : Negative for injury, bleeding, discharge, and swelling, MS/Extremity: Negative for injury and deformity, Skin: Negative for injury, rash, and discoloration, Neuro: Negative for headache, weakness, numbness, tingling, and seizure, Allergy/Immunology: Negative for hives, rash, and allergies, Endocrine: Negative for neck swelling, polydipsia, polyuria, polyphagia, and marked weight changes, Hematologic/Lymphatic: Negative for swollen nodes, abnormal bleeding, and unusual bruising. 01:40 Psych: Positive for anxiety. Exam: 01:40 Constitutional: This is a well developed, well nourished patient who is awake, alert, bert and in no acute distress. Head/Face: Normocephalic, atraumatic. Eyes: Pupils equal round and reactive to light, extra-ocular motions intact. Lids and lashes normal. Conjunctiva and sclera are non-icteric and not injected. Cornea within normal limits. Periorbital areas with no swelling, redness, or edema. ENT: Nares patent. No nasal discharge, no septal abnormalities noted. Tympanic membranes are normal and external auditory canals are clear. Oropharynx with no redness, swelling, or masses, exudates, or evidence of obstruction, uvula midline. Mucous membranes moist. Neck: Trachea midline, no thyromegaly or masses palpated, and no cervical lymphadenopathy. Supple, full range of motion without nuchal rigidity, or vertebral point tenderness. No Meningismus. Chest/axilla: Normal chest wall appearance and motion. Nontender with no deformity. No lesions are appreciated. Cardiovascular: Regular rate and rhythm with a normal S1 and S2. No gallops, murmurs, or rubs. Normal PMI, no JVD. No pulse deficits. Respiratory: Lungs have equal breath sounds bilaterally, clear to auscultation and percussion. No rales, rhonchi or wheezes noted. No increased work of breathing, no retractions or nasal flaring. Abdomen/GI: Soft, non-tender, with normal bowel sounds. No distension or tympany. No guarding or rebound. No evidence of tenderness throughout. Back: No spinal tenderness. No costovertebral tenderness. Full range of motion. Male : Normal genitalia with no discharge or lesions. Skin: Warm, dry with normal turgor. Normal color with no rashes, no lesions, and no evidence of cellulitis. MS/ Extremity: Pulses equal, no cyanosis. Neurovascular intact. Full, normal range of motion. Neuro: Awake and alert, GCS 15, oriented to person, place, time, and situation. Cranial nerves II-XII grossly intact. Motor strength 5/5 in all extremities. Sensory grossly intact. Cerebellar exam normal. Normal gait. Psych: Awake, alert, with orientation to person, place and time. Behavior, mood, and affect are within normal limits. 01:40 ECG was reviewed by the Attending Physician. Vital Signs: 00:01 BP 168 / 98; Pulse 84; Resp 16; Temp 97.8; Pulse Ox 100% on R/A; Weight 77.11 kg; hb Height 5 ft. 9 in. (175.26 cm); Pain 0/10; 01:18 BP 183 / 92; Pulse 74; Resp 17; Pulse Ox 100% on R/A; Pain 0/10; ke1 01:55 BP 143 / 71; Pulse 66; Resp 20; Pulse Ox 98% on R/A; ke1 02:19 BP 133 / 97; Pulse 62; Resp 15; Pulse Ox 96% on R/A; ke1 00:01 Body Mass Index 25.10 (77.11 kg, 175.26 cm) hb MDM: 00:07 Patient medically screened. [facility] 01:41 Differential diagnosis: depression, hypertensive crisis, Malignant HTN. Data reviewed: [facility] vital signs, nurses notes, lab test result(s), EKG, radiologic studies, plain films. Data interpreted: lunchroom monitor: rate is 84 beats/min, rhythm is regular. Test interpretation: by ED physician or midlevel provider: ECG, plain radiologic studies. Counseling: I had a detailed discussion with the patient and/or guardian regarding: the historical points, exam findings, and any diagnostic results supporting the discharge/admit diagnosis, lab results, radiology results, the need for outpatient follow up, for definitive care, a chemistry teacher, a family practitioner. 01/17 00:08 Order name: Basic Metabolic Panel; Complete Time: 01:53 [facility] 01/17 00:08 Order name: CBC with Diff; Complete Time: 01:53 [facility] 01/17 00:08 Order name: LFT's; Complete Time: 01:53 [facility] 01/17 00:08 Order name: Magnesium; Complete Time: 01:53 [facility] 01/17 00:08 Order name: NT PRO-BNP; Complete Time: 01:53 [facility] 01/17 00:08 Order name: PT-INR; Complete Time: 01:53 [facility] 01/17 00:08 Order name: Troponin HS; Complete Time: 01:53 [facility] 01/17 00:08 Order name: XRAY Chest (1 view) [facility] 01/17 00:08 Order name: EKG; Complete Time: 00:11 bert 01/17 01:54 Order name: Urine Dipstick-Ancillary; Complete Time: 01:54 EDMS 01/17 00:08 Order name: Cardiac monitoring; Complete Time: :46 [facility] 01/17 00:08 Order name: EKG - Nurse/Tech; Complete Time: [facility] 01/17 00:08 Order name: IV Saline Lock; Complete Time: [facility] 01/17 00:08 Order name: Labs collected and sent; Complete Time: : [facility] 01/17 00:08 Order name: O2 Per Protocol; Complete Time: [facility] 01/17 00:08 Order name: O2 Sat Monitoring; Complete Time: [facility] 01/17 00:08 Order name: Urine Dipstick-Ancillary (obtain specimen); Complete Time: :52 [facility] EC:40 Rate is 77 beats/min. Rhythm is regular. QRS [place] is Normal. [place] interval is normal. QRS bert interval is normal. QT interval is normal. No Q waves. T waves are Normal. No ST changes noted. Clinical impression: Normal ECG and No evidence of ischemia. Interpreted by me. Reviewed by me. Administered Medications: 01:24 Drug: Lopressor (metoprolol TARTRATE) 50 mg Route: PO; ke1 01:46 Drug: Ativan (LORazepam) 1 mg Route: IVP; Site: left forearm; ke1 02:20 Drug: Aspirin 81 mg Route: PO; ll3 02:56 Follow up: Response: No adverse reaction ll3 02:20 Drug: Potassium Effervescent Tablet 25 mEq Route: PO; ll3 02:56 Follow up: Response: No adverse reaction ll3 Disposition Summary: 01/17/22 02:36 Discharge Ordered Location: Home bert Problem: new bert Symptoms: have improved bert Condition: Stable bert Diagnosis - Essential (primary) hypertension bert - Adjustment disorder with anxiety bert - Hypokalemia bert - Elevated white blood cell count bert Followup: bert - With: Private Physician - When: 2 - 3 days - Reason: Recheck today's complaints, Continuance of care, Re-evaluation by your physician Followup: bert - With: - When: 2 - 3 days - Reason: Recheck today's complaints, Continuance of care, Re-evaluation by your physician Discharge Instructions: - Discharge Summary Sheet bert - Adjustment Disorder, Adult bert - Hypertension, Adult bert - Hypertension, Adult, [id number] bert - How to Take Your Blood Pressure, [id number] bert - Potassium Content of Foods bert - Aspirin and Your Heart bert - Managing Your Hypertension bert - Hypokalemia bert Forms: - Medication Reconciliation Form bert - Thank You Letter bert - Antibiotic Education bert - Prescription Opioid Use bert Prescriptions: - Toprol XL 50 mg Oral Tablet - take 1 tablet by ORAL route once daily; 20 tablet; Refills: 0, Product bert Selection Permitted - Xanax 0.5 mg Oral Tablet - take 1 tablet by ORAL route every 8 hours As needed; 20 tablet; Refills: 0, [facility] Product Selection Permitted Signatures: Dispatcher [employer] Rubén Smith MD MD cha Baxter, Heather RN RN Milady Tobias RN RN ll3 Enzo Whitley RN RN ke1
--- NOTE | 2022-01-17 02:37 | ER ---
Nurse's Notes [facility] Name: Wellington De León Age: 76 yrs Sex: Male : 1945 Arrival Date: 01/16/2022 Time: 23:47 Bed 8 Private MD: Diagnosis: Essential (primary) hypertension;Adjustment disorder with anxiety;Hypokalemia;Elevated white blood cell count Presentation: 01/17 00:01 Chief complaint: Patient states: "I woke up and just didn't feel right, so I took my hb blood pressure and it was 200." Denies pain/dizziness. VAN Negative. Coronavirus screen: At this time, the client does not indicate any symptoms associated with coronavirus-19. Ebola Screen: No symptoms or risks identified at this time. Risk Assessment: Do you want to hurt yourself or someone else? Patient reports no desire to harm self or others. Onset of symptoms was January 17, 2022. 00:01 Method Of Arrival: Ambulatory hb 00:01 Acuity: RASHEEDA 3 hb 01:48 Initial Sepsis Screen: Does the patient meet any 2 criteria? No. Patient's initial ke1 sepsis screen is negative. Does the patient have a suspected source of infection? No. Patient's initial sepsis screen is negative. Triage Assessment: 01:48 General: Appears in no apparent distress. Behavior is appropriate for age. Pain: Denies ke1 pain. Historical: - Allergies: 00:04 No Known Allergies; hb - PMHx: 00:04 Hernia; hb - Immunization history:: Adult Immunizations up to date. - Social history:: Smoking status: Patient denies any tobacco usage or history of. Screenin:47 Abuse screen: Denies threats or abuse. Nutritional screening: No deficits noted. ke1 Tuberculosis screening: No symptoms or risk factors identified. Fall Risk No fall in past 12 months (0 pts). No secondary diagnosis (0 pts). IV access (20 points). Ambulatory Aid- None/Bed Rest/Nurse Assist (0 pts). Gait- Normal/Bed Rest/Wheelchair (0 pts) Mental Status- Oriented to own ability (0 pts). Total Jones Fall Scale indicates No Risk (0-24 pts). Vital Signs: 00:01 BP 168 / 98; Pulse 84; Resp 16; Temp 97.8; Pulse Ox 100% on R/A; Weight 77.11 kg; hb Height 5 ft. 9 in. (175.26 cm); Pain 0/10; 01:18 BP 183 / 92; Pulse 74; Resp 17; Pulse Ox 100% on R/A; Pain 0/10; ke1 01:55 BP 143 / 71; Pulse 66; Resp 20; Pulse Ox 98% on R/A; ke1 02:19 BP 133 / 97; Pulse 62; Resp 15; Pulse Ox 96% on R/A; ke1 00:01 Body Mass Index 25.10 (77.11 kg, 175.26 cm) hb ED Course: 01/16 23:47 Patient arrived in ED. bp1 01/17 00:04 Triage completed. hb 00:04 Arm band placed on. hb 00:07 Rubén Higginbotham MD is Attending Physician. bert 00:30 XRAY Chest (1 view) In Process Unspecified. EDMS 00:42 Enzo Whitley, FER is Primary Nurse. ke1 01:24 Inserted saline lock: 20 gauge in right forearm, using aseptic technique. ke1 01:48 Bed in low position. Call light in reach. ke1 02:36 Kristian Madrigal MD is Referral Physician. bert 02:55 No provider procedures requiring assistance completed. IV discontinued, intact, ll3 bleeding controlled, No redness/swelling at site. Pressure dressing applied. Administered Medications: 01:24 Drug: Lopressor (metoprolol TARTRATE) 50 mg Route: PO; ke1 01:46 Drug: Ativan (LORazepam) 1 mg Route: IVP; Site: left forearm; ke1 02:20 Drug: Aspirin 81 mg Route: PO; ll3 02:56 Follow up: Response: No adverse reaction ll3 02:20 Drug: Potassium Effervescent Tablet 25 mEq Route: PO; ll3 02:56 Follow up: Response: No adverse reaction ll3 Medication: 02:56 VIS not applicable for this client. ll3 Outcome: 02:36 Discharge ordered by . bert 02:55 Discharged to home ambulatory, with family. ll3 02:55 Condition: stable 02:55 Discharge instructions given to patient, family, Instructed on discharge instructions, follow up and referral plans. medication usage, Demonstrated understanding of instructions, follow-up care, medications, Prescriptions given X 2. 02:56 Patient left the ED. ll3 Signatures: Dispatcher [employer] EDRubén Looney MD MD cha Baxter, Heather RN RN Negar Ramírez Lynsea, RN RN 3 Enzo Whitley RN RN ke1 Corrections: (The following items were deleted from the chart) 01:47 01:18 BP 183 / 92; ke1 ke1
--- NOTE | 2022-01-17 15:30 | RAD REPORT ---
EXAM DESCRIPTION: Chest Single View CLINICAL HISTORY: 6 years Male, COUGH COMPARISON: Chest radiograph dated 05/17/2021 FINDINGS: No focal lung consolidation. No pleural effusion. No pneumothorax. Cardiomediastinal silhouette is within normal limits. No acute osseous abnormality. IMPRESSION: No acute cardiopulmonary disease. Electronically signed by: Indio Lang DO 01/17/2022 12:38 AM CDT Due to temporary technical issues with the PACS/Fluency reporting system, reports are being signed by the in house radiologists without review as a courtesy to insure prompt reporting. The interpreting radiologist is fully responsible for the content of the report.
[2022-01-18 12:00] VITALS: TEMP 97.8
[2022-01-18 12:08] VITALS: BP 133/97; O2SAT 96
--- NOTE | 2022-01-19 06:39 | EKG ---
Test Date: 2022-01-17 Test Time: 01:35:58 Greige Goods Marker: JACKLYN MEASUREMENT RESULTS: Intervals: Rate: 77 ND: 156 QRSD: 90 QT: 388 QTc: 439 [place]: P: 46 ND: 156 QRS: 14 T: 69 INTERPRETIVE STATEMENTS: Normal sinus rhythm Normal ECG Compared to ECG 05/04/2009 14:14:12 Sinus tachycardia no longer present Electronically Signed On 01-19-22 06:32:16 CDT by Kristian Madrigal
== END 2022-01-17 02:56 | disposition home or self-care (01) ==
LOC: ER 23:45
DX: F43.22 Adjustment disorder with anxiety (principal); E87.6 Hypokalemia; D72.829 Elevated white blood cell count, unspecified; I10 Essential (primary) hypertension
CPT/HCPCS: 36415; 71045; 80048; 80076; 81003; 83735; 83880; 84484; 85025; 85610; 93005; 96374; 99284